=== PATIENT | female | born 1995 | race Caucasian/White ===

== ENCOUNTER 2016-08-21 11:49 | Emergency (ER) | payer BC, OTHER ==
[2016-08-21 12:06] VITALS: BP 111/68
[2016-08-21] MEDS ORDERED: Ketorolac INJ* 60 MG/2 ML VIAL IM ONE (12:22)
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
== END 2016-08-21 13:03 | disposition home or self-care (01) ==
LOC: UCCORT 11:49
DX: R51 Headache (principal); Z90.49 Acquired absence of other specified parts of digestive tract; F17.210 Nicotine dependence, cigarettes, uncomplicated
CPT/HCPCS: 99201; G0463; J1885

== ENCOUNTER 2016-11-27 17:45 | Emergency (ER) | payer OTHER ==
[2016-11-27 18:00] VITALS: BP 124/65
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
[2016-11-28 10:14] LABS: EBV Response YES
[2016-11-28 10:40] LABS: Manual Entry Verification HAN0055; Mono Internal Control QC Line Present
[2016-11-29 15:24] LABS: EBV Capsid Ag IgG Ab Positive (Negative); EBV Capsid Ag IgM Ab Negative (Negative)
--- NOTE | 2016-11-30 07:16 | UC ---
Progress - Progress Note Progress Note: please notify pt of lab results
== END 2016-11-27 19:05 | disposition home or self-care (01) ==
LOC: UCCORT 17:45
DX: R59.1 Generalized enlarged lymph nodes (principal); R53.83 Other fatigue; R51 Headache; Z90.49 Acquired absence of other specified parts of digestive tract; F12.90 Cannabis use, unspecified, uncomplicated; F17.210 Nicotine dependence, cigarettes, uncomplicated
CPT/HCPCS: 36415; 86308; 86664; 86665; 99211; G0463

== ENCOUNTER 2018-04-21 13:42 | Emergency (ER) | payer OTHER ==
[2018-04-21 14:06] VITALS: BP 147/83
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
== END 2018-04-21 14:43 | disposition home or self-care (01) ==
LOC: UCCORT 13:42
DX: K08.89 Other specified disorders of teeth and supporting structures (principal); F17.210 Nicotine dependence, cigarettes, uncomplicated
CPT/HCPCS: 99212; G0463

== ENCOUNTER 2018-09-05 12:03 | Emergency (ER) | payer OTHER ==
[2018-09-05 13:47] VITALS: BP 111/66
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
== END 2018-09-05 14:09 | disposition home or self-care (01) ==
LOC: UCCORT 12:03
DX: J01.90 Acute sinusitis, unspecified (principal); B96.89 Other specified bacterial agents as the cause of diseases classified elsewhere; R05 Cough; F17.210 Nicotine dependence, cigarettes, uncomplicated
CPT/HCPCS: 99212; G0463